=== PATIENT | female | born 1985 | race Caucasian/White ===

== ENCOUNTER 2017-08-08 13:02 | Emergency (ER) | payer OTHER ==
[2017-08-08 13:47] VITALS: RESP 16; TEMP 98.2
[2017-08-08] MEDS ORDERED: Sodium Chloride 0.9% 1,000 ML IV STA (13:49)
[2017-08-08 14:17] LABS: BASO % 0.5 % (0.0-2.0); EOS % 0.5 % (0.0-4.0); HEMOGLOBIN 11.9 g/dL (11.0-16.0); LYMPH # 1.6 K/uL (1.0-4.3); LYMPH % 17.2 % (20.0-40.0); MEAN CELL VOLUME 77.4 fL (81.0-99.0); MEAN CORPUSCULAR HEMOGLOBIN 25.6 pg (27.0-31.0); MEAN PLATELET VOLUME 8.7 fL (7.2-11.7); MONO # 0.4 K/uL (0.0-0.8); MONO % 4.5 % (0.0-10.0); NEUT # 7.2 K/uL (1.8-7.0); NEUT % 77.3 % (50.0-75.0); NRBC % 0.1 % (0.0-2.0); RBC 4.65 Mil/uL (3.80-5.20); RED CELL DISTRIBUTION WIDTH 15.7 % (11.5-14.5); WHITE BLOOD COUNT 9.2 K/uL (4.8-10.8)
[2017-08-08 14:18] VITALS: O2SAT 100
[2017-08-08 14:32] LABS: INR 1.2; PROTHROMBIN TIME 13.7 SECONDS (9.7-12.2)
--- NOTE | 2017-08-08 14:33 | C.PDOC ---
History Of Present Illness 31-year-old female, presents to the emergency department with complaints of dizziness, palpitations and generalized weakness, developed after she was seen by dentist for tooth extraction. Patient reports they injected lidocaine, after she felt a little light headed, prompting visit to ED. Denies vomiting, chest pain, throat swelling, shortness of breath or rash. Chief Complaint (Nursing): Chest Pain History Per: Patient History/Exam Limitations: no limitations Past Medical History Reviewed: Historical Data, Nursing Documentation, Vital Signs Vital Signs: Last Vital Signs Temp 98.2 F 08/08/17 17:33 Pulse 89 08/08/17 17:33 Resp 16 08/08/17 17:33 BP 112/68 08/08/17 17:33 Pulse Ox 100 08/08/17 17:52 Family History: States: No Known Family Hx - Social History Hx Alcohol Use: Yes Hx Substance Use: No - Immunization History Hx Tetanus Toxoid Vaccination: No Hx Influenza Vaccination: No Hx Pneumococcal Vaccination: No Review Of Systems Constitutional: Positive for: Weakness. Negative for: Fever ENT: Negative for: Throat Swelling Cardiovascular: Positive for: Palpitations Respiratory: Negative for: Shortness of Breath, Wheezing Skin: Negative for: Rash Neurological: Positive for: Dizziness. Negative for: Numbness, Headache Physical Exam - Physical Exam Appears: Non-toxic, No Acute Distress Skin: Normal Color, Warm, Dry, No Rash Head: Normacephalic Eye(s): bilateral: PERRL Ear(s): Left: Other (s/p TM repair, no erythema, no bulging, no drainage, no mastoid tenderness, no mastoid swelling or erythema), Right: Normal Nose: Normal Oral Mucosa: Moist Lips: Normal Appearing Neck: Normal ROM Cardiovascular: Rhythm Regular, No Murmur Respiratory: Normal Breath Sounds, No Accessory Muscle Use Extremity: Normal ROM, No Deformity, No Swelling Neurological/Psych: Oriented x3, Normal Speech ED Course And Treatment - Laboratory Results Result Diagrams: 08/08/17 14:10 08/08/17 14:10 O2 Sat by Pulse Oximetry: 100 (RA) Pulse Ox Interpretation: Normal - Other Rad CXR X-Ray: Viewed By Me, Read By Radiologist Interpretation: Accession No. : [id number]. Patient Name / ID : HENRIQUE ALFREDO / [id number]. Exam Date : 08/08/2017 15:35:58 ( Approved ). Study Comment : Sex / Age : F / 31Y. Creator : Jean Snyder MD. Dictator : Jean Snyder MD. Medical Intern : [employer] Deckhand : Jean Snyder MD. Approver2 : Report Date : 08/08/2017 16:50:00. My Comment : . PROCEDURE: CHEST RADIOGRAPH, 1 VIEW. HISTORY: dizzy/palpitations. COMPARISON: None available. FINDINGS: LUNGS: Clear. PLEURA: No pneumothorax or pleural fluid seen. CARDIOVASCULAR: Normal. OSSEOUS STRUCTURES: Dextroscoliosis of the thoracic spine is noted. VISUALIZED UPPER ABDOMEN: Normal. OTHER FINDINGS : None. IMPRESSION: No evidence of acute pulmonary disease. Moderate thoracic scoliosis - CT Scan/US CT head Other Rad Studies (CT/US): Read By Radiologist, Radiology Report Reviewed CT/US Interpretation: Accession No. : [id number]. Patient Name / ID : HENRIQUE ALFREDO / [id number]. Exam Date : 08/08/2017 15:57:35 ( Approved ). Study Comment : Sex / Age : F / 31Y. Creator : Julio Guerrero. Dictator : Jean Snyder MD. Medical Intern : [employer] De[employer]hand : Jean Snyder MD. Approver2 : Report Date : 08/08/2017 16:06:16. My Comment : . PROCEDURE: CT HEAD WITHOUT CONTRAST. HISTORY: dizzy. COMPARISON: None available. TECHNIQUE: Axial computed tomography images were obtained through the head/ brain without intravenous contrast. Radiation dose: Total exam DLP = 763.17 mGy-cm. This CT exam was performed using one or more of the following dose reduction techniques: Automated exposure control, adjustment of the mA and/or kV according to patient size, and/or use of iterative reconstruction technique. FINDINGS: HEMORRHAGE: No intracranial hemorrhage. BRAIN: No mass effect or edema. No atrophy or chronic microvascular ischemic changes. VENTRICLES: Unremarkable. No hydrocephalus. CALVARIUM: Unremarkable. PARANASAL SINUSES: Unremarkable as visualized. No significant inflammatory changes. MASTOID AIR CELLS: There is defect in the lateral wall of the left mastoid suggestive of prior surgery. There is complete opacification of the left mastoid air cells. OTHER FINDINGS: None. IMPRESSION: No evidence of acute intracranial hemorrhage intracranial collection mass effect or midline shift. Findings suggestive of prior surgery in the left mastoid. Complete opacification of the left mastoid air cells suggestive of mastoiditis. Progress Note: On re-evaluation patient feels better, no longer c/o dizziness or palpitation. Ptient will be d/c home with PMD and ENT follow up within 2-3 days. Copies of CXR, CT and lab reports were given to the patient. Disposition - Disposition Referrals: Conner Aguirre MD [Staff Provider] - Disposition: HOME/ ROUTINE Disposition Time: 17:12 Condition: STABLE Additional Instructions: Follow up with PMD and ENT specialist within 1-2 days. Return to ED if feel worse. Prescriptions: Meclizine [Meclizine*] 25 mg PO Q6 #30 tab Instructions: Vertigo (a Type of Dizziness), Palpitations Forms: [employer] ([place]) - Clinical Impression Clinical Impression: Dizziness, Palpitation - Scribe Statement The provider has reviewed the documentation as recorded by the Scribe (Rei Barkley) All medical record entries made by the Scribe were at my direction and personally dictated by me. I have reviewed the chart and agree that the record accurately reflects my personal performance of the history, physical exam, medical decision making, and the department course for this patient. I have also personally directed, reviewed, and agree with the discharge instructions and disposition.
[2017-08-08 14:37] LABS: ALB/GLOB RATIO 1.2 (1.0-2.1); ALBUMIN 4.5 g/dL (3.5-5.0); ALT/SGPT 14 U/L (9-52); AST/SGOT 27 U/L (14-36); BLOOD UREA NITROGEN 4 mg/dL (7-17); CALCIUM 9.7 mg/dl (8.6-10.4); GFR AFRICAN-AMERICAN > 60; GFR NON-AFRICAN AMERICAN > 60
[2017-08-08 14:45] LABS: CK-MB < 0.22 ng/mL (0.0-3.38)
[2017-08-08 15:24] LABS: SQUAMOUS EPITHIAL 1 /hpf (0-5); URINE BACTERIA RARE (<OCC); URINE BILIRUBIN NEGATIVE (NEGATIVE); URINE BLOOD NEGATIVE (NEGATIVE); URINE CLARITY Clear (Clear); URINE COLOR Colorless (YELLOW); URINE GLUCOSE (UA) NORMAL (Normal); URINE LEUKOCYTE ESTERASE NEG Leu/uL (Negative); URINE PROTEIN NEGATIVE (NEGATIVE); URINE UROBILINOGEN NORMAL mg/dL (0.2-1.0)
[2017-08-08 15:27] LABS: HCG,QUALITATIVE URINE NEGATIVE (NEGATIVE)
--- NOTE | 2017-08-08 16:30 | CT ---
PROCEDURE: CT HEAD WITHOUT CONTRAST. HISTORY: dizzy COMPARISON: None available. TECHNIQUE: Axial computed tomography images were obtained through the head/brain without intravenous contrast. Radiation dose: Total exam DLP = 763.17 mGy-cm. This CT exam was performed using one or more of the following dose reduction techniques: Automated exposure control, adjustment of the mA and/or kV according to patient size, and/or use of iterative reconstruction technique. FINDINGS: HEMORRHAGE: No intracranial hemorrhage. BRAIN: No mass effect or edema. No atrophy or chronic microvascular ischemic changes. VENTRICLES: Unremarkable. No hydrocephalus. CALVARIUM: Unremarkable. PARANASAL SINUSES: Unremarkable as visualized. No significant inflammatory changes. MASTOID AIR CELLS: There is defect in the lateral wall of the left mastoid suggestive of prior surgery. There is complete opacification of the left mastoid air cells. OTHER FINDINGS: None. IMPRESSION: No evidence of acute intracranial hemorrhage intracranial collection mass effect or midline shift. Findings suggestive of prior surgery in the left mastoid. Complete opacification of the left mastoid air cells suggestive of mastoiditis.
--- NOTE | 2017-08-08 16:51 | RAD ---
PROCEDURE: CHEST RADIOGRAPH, 1 VIEW HISTORY: dizzy/palpitations COMPARISON: None available. FINDINGS: LUNGS: Clear. PLEURA: No pneumothorax or pleural fluid seen. CARDIOVASCULAR: Normal. OSSEOUS STRUCTURES: Dextroscoliosis of the thoracic spine is noted. VISUALIZED UPPER ABDOMEN: Normal. OTHER FINDINGS: None. IMPRESSION: No evidence of acute pulmonary disease. Moderate thoracic scoliosis
[2017-08-08 17:34] VITALS: BP 112/68; PULSE 89
== END 2017-08-08 17:33 | disposition home or self-care (01) ==
LOC: C.ER 13:02
DX: R42 Dizziness and giddiness (principal); R00.2 Palpitations
CPT/HCPCS: 70450; 71045; 80053; 81001; 82550; 82553; 84484; 84703; 85025; 85378; 85610; 85730; 96360; 99285; J7040